=== PATIENT | female | born 1965 | race Caucasian/White ===

== ENCOUNTER 2018-07-21 08:37 | Outpatient (CLI) | payer OTHER | END 2018-07-21 08:41 | disposition home or self-care (01) | LOC: SONOGRAMA 08:37 | DX: E04.1 Nontoxic single thyroid nodule (principal) ==

== ENCOUNTER 2020-09-08 10:52 | Outpatient (CLI) | payer OTHER | END 2020-09-08 10:58 | disposition home or self-care (01) | LOC: SONOGRAMA 10:52 | PROVIDERS: ATTEND Pathology Anatomic Pathology & Clinical Pathology | DX: D34 Benign neoplasm of thyroid gland (principal); E04.1 Nontoxic single thyroid nodule ==